=== PATIENT | male | born 2000 | race Caucasian/White ===

== ENCOUNTER 2023-02-25 15:01 | Emergency (ER) | payer OTHER, SELFPAY ==
--- NOTE | ~2023-02-25 | XR_ITS ---
EXAMINATION: XR hand RT min 3V DATE: 02/25/2023 15:21 INDICATION: Right hand pain and swelling. TECHNIQUE: 3 views of right hand were obtained. COMPARISON: None. FINDINGS: There are chip fracture fragments dorsal to fifth carpometacarpal joint. Joint spaces are n ormal. IMPRESSION: 1. Chip fracture fragments dorsal to fifth carpometacarpal joint, likely from the dorsal distal edge of hamate. Reviewed, dictated and finalized at location A. IMPRESSION: 1. Chip fracture fragments dorsal to fifth carpometacarpal joint, likely from t he dorsal distal edge of hamate.
[2023-02-25 15:05] VITALS: BP 140/88; PULSE 88; RESP 16; TEMP 36.4; O2SAT 97
[2023-02-25 15:51] VITALS: BP 139/95; PULSE 84; RESP 20; O2SAT 97
--- NOTE | 2023-02-25 16:06 | ED.UPPEXIN ---
HPI - Extremity Injury (Upper) General Chief Complaint: Extremity Injury, Upper <BENNY Saunders Last Filed: 02/25/23 17:24> Stated Complaint: I PUNCHED A WALL. <Nancy Hogan PA-C - Last Filed: 02/25/23 17:24> Time Seen by Provider: 02/25/23 15:48 <Nancy Hogan PA-C - Last Filed: 02/25/23 17:24> Source: patient <BENNY Saunders Last Filed: 02/25/23 17:24> Mode of arrival: ambulatory <BENNY Saunders Last Filed: 02/25/23 17:24> Limitations: no limitations <BENNY Saunders Last Filed: 02/25/23 17:24> History of Present Illness HPI narrative: Patient is a 22-year-old R hand dominant male who presents ED with report of right hand pain. Patient reports he punched a wall last night out of anger. He complains of pain and swelling to his right dorsal hand, worst over the third through fifth metacarpals. Denies any numbness or tingling. Denies any other injury. Patient states that his aunt gave him a hydrocodone last night for pain. <Nancy Hogan PA-C - Last Filed: 02/25/23 17:24> Related Data Allergies/Adverse Reactions: Allergies Allergy/AdvReac Type Severity Reaction Status Date / Time No Known Allergies Allergy Verified 02/25/23 15:56 <Nancy Hogan PA-C - Last Filed: 02/25/23 17:24> Review of Systems Review of Systems: CONSTITUTIONAL: Denies fever, chills, or sweats. SKIN: See HPI. MUSCULOSKELETAL: See HPI. NEUROLOGIC: Denies tingling, numbness, or weakness. <BENNY Saunders Last Filed: 02/25/23 17:24> All systems reviewed & are unremarkable except as noted in HPI and below <BENNY Saunders Last Filed: 02/25/23 17:24> Exam Narrative: GENERAL: Well appearing, obese with BMI 31.0, non-toxic, in no acute distress. HEAD: Normocephalic, atraumatic. NECK: Supple. No adenopathy, no masses. RESPIRATORY: Airway patent, respirations nonlabored. Clear to auscultation bilaterally, no rales, rhonchi, wheezing. CARDIOVASCULAR: Regular rate and rhythm without murmurs, rubs, or gallops. Radial pulses 2+ and equal bilaterally. MUSCULOSKELETAL: Limited flexion range of motion of right fingers due to pain. Swelling and ecchymosis forming over right dorsal hand, tenderness to palpation particularly over proximal fourth and fifth metacarpals. Sensation intact. Good capillary refill of fingers. SKIN: Warm, dry, normal color. No rashes. NEURO: A&O X3. Speech clear. Cranial nerves II-XII grossly intact. Steady gait. No ataxic movements. PSYCHIATRIC: Appropriate mood and affect. Normal interaction. <Nancy Hogan PA-C - Last Filed: 02/25/23 17:24> Course HAY RAKE OPERATOR/PA Physician Supervision I agree with midlevel documentation; I performed the medical decision making component of this evaluation. <Olena Alvarado MD - Last Filed: 02/25/23 17:55> Vital Signs Vital signs: Vital Signs Temperature 97.5 F L 02/25/23 15:05 Pulse Rate 88 02/25/23 15:05 Respiratory Rate 16 02/25/23 15:05 Blood Pressure 140/88 02/25/23 15:05 Pulse Oximetry 97 02/25/23 15:05 Temperature 97.5 F L 02/25/23 15:05 Pulse Rate 94 02/25/23 17:14 Respiratory Rate 19 02/25/23 17:14 Blood Pressure 135/90 02/25/23 17:14 Pulse Oximetry 98 02/25/23 17:14 <Nancy Hogan PA-C - Last Filed: 02/25/23 17:24> Vital Signs Temperature 97.5 F L 02/25/23 15:05 Pulse Rate 88 02/25/23 15:05 Respiratory Rate 16 02/25/23 15:05 Blood Pressure 140/88 02/25/23 15:05 Pulse Oximetry 97 02/25/23 15:05 Temperature 97.5 F L 02/25/23 15:05 Pulse Rate 94 02/25/23 17:14 Respiratory Rate 19 02/25/23 17:14 Blood Pressure 135/90 02/25/23 17:14 Pulse Oximetry 98 02/25/23 17:14 <Olena Alvarado MD - Last Filed: 02/25/23 17:55> MDM - Extremity Injury (Upper) MDM Narrative Medical decision making narrative: Patient presented t
[2023-02-25 17:14] VITALS: BP 135/90; PULSE 94; RESP 19; O2SAT 98
== END 2023-02-25 17:17 | disposition home or self-care (01) ==
LOC: ANHED 16:47
PROVIDERS: Emergency Provider Physician Assistant
DX: S62.144A Nondisplaced fracture of body of hamate [unciform] bone, right wrist, initial encounter for closed fracture (principal); W22.09XA Striking against other stationary object, initial encounter
CPT/HCPCS: 29125; 73130; 99284

== ENCOUNTER 2024-12-21 11:27 | Emergency (ER) | payer SELFPAY ==
[2024-12-21 11:48] VITALS: BP 137/85; PULSE 68; RESP 16; TEMP 36.6; O2SAT 96
--- OUTSIDE RECORDS SUMMARY | 2024-12-21 11:48 | XMS_ITS | Patient Health Record ---
Author Organization [facility] Address [address] [place], [place] [id number] Care Team Providers Care Montessori Program Director Name Role Phone Elio Gregg Primary Care Provider Marcell Angel Unavailable [phone] Reason For Referral No Information Problems Problem Type SNOMED Code ICD Code Onset Dates Problem Status W/U Status Risk Notes Problem Chronic tonsillitis (disorder) (27186148) Chronic tonsillitis and adenoiditis (474.02) Active confirmed Problem Hypertrophy of tonsils and adenoids (474.10) Active confirmed Plan Of Treatment No Information Insurance Providers Payer Name Payer Address Payer Phone Subscriber Number Group Number Insured Name Patient Relationship to Insured Coverage Start Date Coverage End Date [facility] [address] [address] [place] [address] [id number] 21 Ines Dennis Child - Insured has Financial Responsibility Medical (General) History Medical History History ICD Code Patient accompanied by:: mother, Is the patient over the age of 18?: No Surgical History Surgery Date(Month/Year) T & A
--- OUTSIDE RECORDS SUMMARY | 2024-12-21 11:48 | XMS_ITS | Clinical Summary ---
Author Organization [facility] Address [address] [place] [address] Care Team Providers Care Health Educator Name Role Phone Gilson Tineo MD Primary Care Provider [phone] Source Comments [facility],non-owned Affiliates and Associated Physician Practices is amultiple site organization consisting of ambulatory clinics and hospital sitesin [place], [place], [place] and [place]. This disclosure is being madepursuant to the Care Everywhere program and may not contain all information available regarding this patient. Last updated 18.[facility] Allergies No known active allergies Medications * Be aware that medications may not be up to date on this document. Alwaysverify current medications with the patient. 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 Gender Identity Not on file Sexual Orientation Not on file Last Filed Vital Signs Vital Sign Reading Time Taken Comments Blood Pressure 132/68 05/08/2013 8:07 PM CDT Pulse 76 05/08/2013 8:07 PM CDT Temperature 36.4 C (97.6 F) 05/08/2013 6:04 PM CDT Respiratory Rate 16 05/08/2013 8:07 PM CDT Oxygen Saturation 100% 05/08/2013 8:07 PM CDT Inhaled Oxygen Concentration - - Weight 72.6 kg (160 lb) 05/08/2013 6:04 PM CDT Height - - Body Mass Index - - Plan of Treatment Health Maintenance Due Date Last Done Comments HIV SCREENING 2014 HPV VACCINE (1 - Male 3-dose series) 2014 HEPATITIS C SCREENING 09/13/2017 DTAP/TDAP/TD VACCINES (1 - Tdap) 2018 HEPATITIS B VACCINE (1 of 3 - 19+ 3-dose series) 2018 COVID-19 VACCINE (1 - 2023-2 5 season) 2024 DEPRESSION SCREENING 08/11/2024 INFLUENZA VACCINE (Season Ended) 2025 ZOSTER VACCINE (1 of 2) 2049 MENINGOCOCCAL GROUPS A/C/Y/W VACCINE Completed 05/21/2018 HIB VACCINE Aged Out No longer eligi ble based on patient's age to complete this topic MENINGOCOCCAL (Group B) VACC INE SHARED DECISION-MAKING Aged Out No longer eligibl e based on patient's age to complete this topic PNEUMOCOCCAL VACCINE Aged Out No long er eligible based on patient's age to complete this topic Insurance MEDICAID - [place] Care Teams Health Educator Relationship Specialty Start Date End Date Gilson Tineo MD [address] [place] [id number] PCP - General Family Medicine 05/08/13
[2024-12-21] MEDS: TETANUS,DIPHTHERIA,AC PERTUSSIS ADULT (0.5 ML) BOOSTRIX IM (13:16)
--- NOTE | 2024-12-21 13:31 | ED_ITS ---
HPI - General Adult General Chief complaint: Wound/Laceration Stated complaint: head injury Time Seen by Provider: 12/21/24 13:04 History of Present Illness HPI narrative: Patient is a 24-year-old male who was at home working 1 hemoptysis or killer saw off of a ladder and it struck his head. No LOC. 3 cm laceration. Bleeding controlled. Unknown last tetanus shot. No other concerns. Related Data Allergies Allergy/AdvReac Type Severity Reaction Status Date / Time No Known Allergies Allergy Verified 12/21/24 11:51 Review of Systems Constitutional: Constitutional: Reports no additional constitutional complaints Integumentary/Breasts: Skin/Breast: Reports system reviewed and no additional complaints, except as docu Neurologic: Reports system reviewed and no additional complaints, except as documented PMFSH Past Medical History Medical History (Updated 12/21/24 @ 13:34 by Ayan Joaquin MD) Healthy adult male Exam Narrative: GENERAL: Well-appearing, well-nourished, and in no acute distress. HEAD: Normocephalic, 3 cm midline vertical laceration to the anterior scalp above the forehead. ENT: Mucous membranes moist. EXTREMITIES: Normal range of motion. No edema. SKIN: Warm, dry, no rash. NEURO: Alert and oriented x3. PSYCH: Normal mood and affect. Course Course Emergency Course: Wound irrigated and cleaned. No foreign body. Tolerated repair. Discussed return precautions. Tetanus updated. Vital Signs Vital signs: Vital Signs Temperature 97.8 F 12/21/24 11:48 Pulse Rate 68 12/21/24 11:48 Respiratory Rate 16 12/21/24 11:48 Blood Pressure 137/85 12/21/24 11:48 Pulse Oximetry 96 12/21/24 11:48 Oxygen Delivery Room Air 12/21/24 11:48 Temperature 97.8 F 12/21/24 11:48 Pulse Rate 68 12/21/24 11:48 Respiratory Rate 16 12/21/24 11:48 Blood Pressure 137/85 12/21/24 11:48 Pulse Oximetry 96 12/21/24 11:48 Oxygen Delivery Room Air 12/21/24 11:48 Procedures Laceration Laceration 1: Date: 12/21/24 Time: 13:30 Site: scalp Size (cm): 3 Description: linear and clean Depth: simple, single layer ====== Skin Level ====== Skin layer closed with: derek Number of sutures: 3 ====== Subcutaneous Layer ====== ====== Muscle Layer ====== ====== Tendon Layer ====== Medical Decision Making Vital Signs Vital Signs: Vital Signs Temperature 97.8 F 12/21/24 11:48 Pulse Rate 68 12/21/24 11:48 Respiratory Rate 16 12/21/24 11:48 Blood Pressure 137/85 12/21/24 11:48 Pulse Oximetry 96 12/21/24 11:48 Oxygen Delivery Room Air 12/21/24 11:48 Temperature 97.8 F 12/21/24 11:48 Pulse Rate 68 12/21/24 11:48 Respiratory Rate 16 12/21/24 11:48 Blood Pressure 137/85 12/21/24 11:48 Pulse Oximetry 96 12/21/24 11:48 Oxygen Delivery Room Air 12/21/24 11:48 Discharge Plan Discharge Clinical Impression: Laceration of scalp Patient Disposition: Home Condition: Stable Instructions: Laceration (ED), Staple Care (ED) Additional Instructions: Remove your derek in 7 days. Return the ER if the wound is draining pus coming you have fever over 100.4? F, you have additional concerns. Patient Language: Afghan Prescriptions: No Action hydrocodone-acetaminophen 5-325 mg tablet 1 tablet PO Q6H PRN (Reason: pain) Qty: 9 0RF Follow-up/Referrals: PHYSICIAN,WATER PURIFICATION CHEMIST [Primary Care Provider] - José Miguel Merrill MD [Physician] - 1 Week
--- OUTSIDE RECORDS SUMMARY | 2024-12-21 13:55 | XMS_ITS | Clinical Summary ---
Author Organization [facility] Address [address] [place] [address] Care Team Providers Care Tie Sawyer Name Role Phone Gilson Tineo MD Primary Care Provider [phone] Source Comments [facility],non-owned Affiliates and Associated Physician Practices is amultiple site organization consisting of ambulatory clinics and hospital sitesin [place], [place], [place] and [place]. This disclosure is being madepursuant to the Care Everywhere program and may not contain all information available regarding this patient. 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
== END 2024-12-21 13:46 | disposition home or self-care (01) ==
PROVIDERS: Emergency Provider Emergency Medicine
DX: S01.01XA Laceration without foreign body of scalp, initial encounter (principal); W20.8XXA Other cause of strike by thrown, projected or falling object, initial encounter; Z23 Encounter for immunization
CPT/HCPCS: 12002; 90471; 90715; 99282

== ENCOUNTER 2025-03-05 20:07 | Emergency (ER) | payer SELFPAY ==
--- OUTSIDE RECORDS SUMMARY | 2025-03-05 20:09 | XMS_ITS | Patient Health Record ---
Author Organization [facility] Address [address] [place], [place] [id number] Care Team Providers Care Die Cutting Machine Operator Name Role Phone Elio Gregg Primary Care Provider Marcell Angel Unavailable [phone] Reason For Referral No Information Problems Problem Type SNOMED Code ICD Code Onset Dates Problem Status W/U Status Risk Notes Problem Chronic tonsillitis (disorder) (39273890) Chronic tonsillitis and adenoiditis (474.02) Active confirmed Problem Hypertrophy of tonsils and adenoids (474.10) Active confirmed Plan Of Treatment No Information Insurance Providers Payer Name Payer Address Payer Phone Subscriber Number Group Number Insured Name Patient Relationship to Insured Coverage Start Date Coverage End Date [facility] [address] [address] [place] [address] [phone] [id number] 21 Ines Dennis Child - Insured has Financial Responsibility Medical (General) History Medical History History ICD Code Patient accompanied by:: mother, Is the patient over the age of 18?: No Surgical History Surgery Date(Month/Year) T & A
--- OUTSIDE RECORDS SUMMARY | 2025-03-05 20:09 | XMS_ITS | Clinical Summary ---
Author Organization [facility] Address [address] [address] Care Team Providers Care General Car Yard Supervisor Name Role Phone Gilson Tineo MD Primary Care Provider [phone] Source Comments [facility],non-owned Affiliates and Associated Physician Practices is amultiple site organization consisting of ambulatory clinics and hospital sitesin [place], [place], [place] and [place]. This disclosure is being madepursuant to the Care Everywhere program and may not contain all information available regarding this patient. 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
[2025-03-05 20:17] VITALS: BP 171/87; PULSE 91; RESP 20; TEMP 36.6; O2SAT 96
--- OUTSIDE RECORDS SUMMARY | 2025-03-05 22:21 | XMS_ITS | Clinical Summary ---
Author Organization [facility] Address [address] [facility] [address] [place] [address] Care Team Providers Care Hot Bread Baker Name Role Phone Gislon Tineo MD Primary Care Provider [phone] Source Comments [facility] [employer],non-owned Affiliates and Associated Physician Practices is amultiple site organization consisting of ambulatory clinics and hospital sitesin [place], [place], [place] and [place]. This disclosure is being madepursuant to the Care Everywhere program and may not contain all information available regarding this patient. 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
--- NOTE | 2025-03-05 22:30 | ED.SKABFB ---
HPI - Skin/Abscess/Foreign Bdy General Chief complaint: Skin/Abscess/Foreign Body Stated complaint: something crawling in legs Time Seen by Provider: 03/05/25 22:09 Source: patient and RN notes reviewed Mode of arrival: ambulatory Limitations: no limitations History of Present Illness HPI narrative: 24 y/o WM in the ED for insect bites to BLE since going on a camping trip in [place]. Pt states that worms are crawling out of his wounds. Pt endorses marijuana and cocaine usage today, as well as ETOH usage all weekend. Pt states bites don't itch. Denies wearing long pants or bug spray. Pt denies any ticks or chiggers found on the body. Pt denies any fevers, chills, CP, SOB, abd pain. Related Data Allergies Allergy/AdvReac Type Severity Reaction Status Date / Time No Known Allergies Allergy Verified 03/05/25 20:27 Review of Systems Review of Systems: CONSTITUTIONAL: Denies fever, chills, or sweats. EYES: Denies visual changes, redness, or discharge. ENT: Denies rhinorrhea, congestion, sore throat, or otalgia. CARDIOVASCULAR: Denies chest pain, palpitations, or edema. RESPIRATORY: Denies cough or dyspnea. GASTROINTESTINAL: Denies abdominal pain, nausea, vomiting, or diarrhea. GENITOURINARY: Denies dysuria or hematuria. SKIN: Endorses numerous insect bites to legs with worms crawling out of them. Denies itching. MUSCULOSKELETAL: Denies back pain, joint pain, or myalgia. NEUROLOGIC: Denies headache, numbness, or weakness. PSYCHIATRIC: Denies anxiety or depression. [facility] Past Medical History Medical History (Updated 03/05/25 @ 22:56 by Giuseppe Harris, CHANELL) Healthy adult male Exam Narrative: GENERAL: Well-appearing, well-nourished, and in no acute distress. HEAD: Normocephalic, atraumatic. EYES: PERRLA and EOMI. ENT: Nares clear, no rhinorrhea or epistaxis. Mucous membranes moist. NECK: Supple. CHEST: Clear to auscultation. No respiratory distress. HEART: Regular rate and rhythm. No murmur heard. Normal peripheral pulses. ABDOMEN: Soft, nontender, nondistended, normal active bowel sounds. EXTREMITIES: Normal range of motion. No edema. SKIN: Warm, dry. Pt has numerous papules and pustules to BLE from the thigh to the ankle, w/ some scabbed over area. NEURO: No focal deficits. Alert and oriented x3. PSYCH: Normal mood and affect. Course Vital Signs Vital signs: Vital Signs Temperature 36.6 C 03/05/25 20:17 Pulse Rate 91 03/05/25 20:17 Respiratory Rate 20 03/05/25 20:17 Blood Pressure 171/87 H 03/05/25 20:17 Pulse Oximetry 96 03/05/25 20:17 Oxygen Delivery Room Air 03/05/25 20:17 Temperature 36.6 C 03/05/25 20:17 Pulse Rate 91 03/05/25 20:17 Respiratory Rate 20 03/05/25 20:17 Blood Pressure 171/87 H 03/05/25 20:17 Pulse Oximetry 96 03/05/25 20:17 Oxygen Delivery Room Air 03/05/25 20:17 MDM - Skin/Abscess/Foreign Bdy MDM Narrative Medical decision making narrative: HPI: 24 y/o WM in the ED for insect bites to BLE since going on a camping trip in [place]. Pt states that worms are crawling out of his wounds. Pt endorses marijuana and cocaine usage today, as well as ETOH usage all weekend. Pt states bites don't itch. Denies wearing long pants or bug spray. Pt denies any ticks or chiggers found on the body. Pt denies any fevers, chills, CP, SOB, abd pain. My Plan Labs Ordered: None Imaging Ordered: None Medications Ordered: None Results: Diagnosis: Rash d/t insect bites Risks: HEART score, PECARN score, CURB-65 score Consults: Differential Diagnosis Differential diagnosis: Likely abscess of skin or subcutaneous tissue, urticaria, allergic reaction to drug and insect bites Discharge Plan Discharge Clinical Impression: Insect bites, Rash Patient Disposition: Home Condition: Stable Instructions: Antibiotic Form, Insect Bite or Sting (ED) Additional Instructions: Please return to the ER with any worsening symptoms. ?Follow-up with primary care provider as soon as possible. ?Take all medications as prescribed, including regularly scheduled medications. May use [id number] 1% hydrocortisone to help her with her rash and bites. Patient Language: Occitan Prescriptions: No Action hydrocodone-acetaminophen 5-325 mg tablet 1 tablet PO Q6H PRN (Reason: pain) Qty: 9 0RF Follow-up/Referrals: UNKNOWN,DOCTOR [Primary Care Provider] -
== END 2025-03-05 23:10 | disposition home or self-care (01) ==
PROVIDERS: Emergency Provider Registered Nurse Emergency
DX: S80.862A Insect bite (nonvenomous), left lower leg, initial encounter (principal); S80.861A Insect bite (nonvenomous), right lower leg, initial encounter; R21 Rash and other nonspecific skin eruption; W57.XXXA Bitten or stung by nonvenomous insect and other nonvenomous arthropods, initial encounter; F12.90 Cannabis use, unspecified, uncomplicated; F14.90 Cocaine use, unspecified, uncomplicated
CPT/HCPCS: 99281

== ENCOUNTER 2025-05-16 17:31 | Emergency (ER) | payer SELFPAY ==
--- NOTE | ~2025-05-16 | XR_ITS ---
EXAMINATION: XR wrist LT min 3V, 05/16/2025 18:05 CDT HISTORY: injury, fell on Friday COMPARISON: No comparisons available. Findings: No acute fracture or malalignment. No significant degenerative changes. Soft tissues unremarkable. Impression: No acute fracture or malalignment. Reviewed, dictated and finalized at location P. Impression: No acute fracture or malalignment.
[2025-05-16 18:18] VITALS: BP 155/80; PULSE 73; RESP 18; TEMP 36.4; O2SAT 100
--- NOTE | 2025-05-16 18:18 | ED_ITS ---
HPI - Extremity Injury (Upper) General Chief Complaint: Extremity Injury, Upper <Musa Devries APRN - Last Filed: 05/16/25 18:20> Stated Complaint: I think I broke my left wrist <Musa Devries APRN - Last Filed: 05/16/25 18:20> Time Seen by Provider: 05/16/25 22:51 <Musa Devries APRN - Last Filed: 05/16/25 18:20> Focused HPI: 24-year-old male presents ER complaining of left wrist pain. Patient states 3 days ago he was intoxicated, fell on an outstretched arm. Pain complaining of pain since the injury. Pain is worse with movement. No other injuries. GENERAL: Well-appearing, well-nourished, and in no acute distress. HEAD: Normocephalic, atraumatic. CHEST: Clear to auscultation. No respiratory distress. HEART: Regular rate and rhythm. NEURO: Alert and oriented x3. Patient screened in triage and initial orders placed. Additional care and disposition to be based upon diagnostic testing and treatment. <Musa Devries APRN - Last Filed: 05/16/25 18:20> Related Data Allergies/Adverse Reactions: Allergies Allergy/AdvReac Type Severity Reaction Status Date / Time No Known Allergies Allergy Verified 05/16/25 21:50 <Musa Devries APRN - Last Filed: 05/16/25 18:20> Review of Systems Review of Systems: All systems reviewed & are unremarkable except as noted in HPI and below <Ewa Weaver PA-C - Last Filed: 05/16/25 23:56> PMFSH Past Medical History Medical History: Medical History (Updated 05/16/25 @ 23:54 by Ewa Weaver PA-C) Healthy adult male <Musa Devries APRN - Last Filed: 05/16/25 18:20> Exam Narrative: GENERAL: Well-appearing, well-nourished, and in no acute distress. HEAD: Normocephalic, atraumatic. EYES: EOMI. EXTREMITIES: Normal range of motion. No obvious deformity. Normal radial pulse. Normal sensation SKIN: Warm, dry, no rash. NEURO: No focal deficits. Alert and oriented x3. PSYCH: Normal mood and affect <Ewa Weaver PA-C - Last Filed: 05/16/25 23:56> Course Vital Signs Vital signs: Vital Signs Temperature 97.5 F L 05/16/25 18:18 Pulse Rate 73 05/16/25 18:18 Respiratory Rate 18 05/16/25 18:18 Blood Pressure 155/80 H 05/16/25 18:18 Pulse Oximetry 100 05/16/25 18:18 Temperature 97.7 F 05/16/25 21:49 Pulse Rate 71 05/16/25 21:49 Respiratory Rate 20 05/16/25 21:49 Blood Pressure 148/82 H 05/16/25 21:49 Pulse Oximetry 100 05/16/25 21:49 Oxygen Delivery Room Air 05/16/25 21:47 <Musa Devries COMBAT SYSTEMS ENGINEER - Last Filed: 05/16/25 18:20> Vital Signs Temperature 97.5 F L 05/16/25 18:18 Pulse Rate 73 05/16/25 18:18 Respiratory Rate 18 05/16/25 18:18 Blood Pressure 155/80 H 05/16/25 18:18 Pulse Oximetry 100 05/16/25 18:18 Temperature 97.7 F 05/16/25 21:49 Pulse Rate 71 05/16/25 21:49 Respiratory Rate 20 05/16/25 21:49 Blood Pressure 148/82 H 05/16/25 21:49 Pulse Oximetry 100 05/16/25 21:49 Oxygen Delivery Room Air 05/16/25 21:47 <BENNY Rivero Last Filed: 05/16/25 23:56> MDM - Extremity Injury (Upper) MDM Narrative Medical decision making narrative: Patient presents to the emergency department after a fall 2 days ago with left wrist pain. He is neurovascularly intact. Left wrist x-ray without acute osseous abnormalities. Patient placed in Brandon wrap. Instructed to rest, ice and take [id number] pain medication as needed. He was given warnings to return to the ER <BENNY Rivero Last Filed: 05/16/25 23:56> Differential Diagnosis Differential diagnosis: Likely sprain and strain of wrist and fracture of wrist <BENNY Rivero Last Filed: 05/16/25 23:56> Imaging Data Radiologist's impression: ITS Impressions Wrist X-Ray 05/16/25 18:17 Impression: No acute fracture or malalignment. <Ewa Weaver PA-C - Last Filed: 05/16/25 23:56> Critical Care Time Critical Care Time Critical Care Time: No <Ewa Weaver PA-C - Last Filed: 05/16/25 23:56> Discharge Plan Discharge Clinical Impression: Contusion of left wrist Qualifiers: Encounter type: initial encounter Qualified Code(s): S60.212A - Contusion of left wrist, initial encounter <Musa Devries APRN - Last Filed: 05/16/25 18:20> Patient Disposition: Home <Musa Devries APRN - Last Filed: 05/16/25 18:20> Condition: Stable <Musa Devries APRN - Last Filed: 05/16/25 18:20> Instructions: Contusion in Adults (ED) <Musa Devries APRN - Last Filed: 05/16/25 18:20> Additional Instructions: Return to the ER if you experience fever, redness and swelling of your extremity, numbness or any other symptoms that are concerning to you Wear BRANDON wrap. No weight on the affected extremity. Ice and elevate extremity. Pain medication as needed and directed. Follow up with orthopedics for further care. <Musa Devries APRN - Last Filed: 05/16/25 18:20> Patient Language: Azerbaijani <Msua Devries APRN - Last Filed: 05/16/25 18:20> Prescriptions: No Action hydrocodone-acetaminophen 5-325 mg tablet 1 tablet PO Q6H PRN (Reason: pain) Qty: 9 0RF <CHANELL Pinon Last Filed: 05/16/25 18:20> Follow-up/Referrals: Marco Dickens MD [Physician, Orthopedics] UNKNOWN,DOCTOR [Non-Staff] <CHANELL Pinon Last Filed: 05/16/25 18:20>
[2025-05-16 21:47] VITALS: BP 148/82; PULSE 67; RESP 14; TEMP 36.5; O2SAT 100
[2025-05-16 21:49] VITALS: BP 148/82; PULSE 71; RESP 20; TEMP 36.5; O2SAT 100
--- OUTSIDE RECORDS SUMMARY | 2025-05-16 23:05 | XMS_ITS | Clinical Summary ---
Author Organization [facility] Address [address] [place] [address] Care Team Providers Care Carbon Brush Maker Name Role Phone Gilson Tineo MD Primary Care Provider [phone] Source Comments [facility],non-owned Affiliates and Associated Physician Practices is amultiple site organization consisting of ambulatory clinics and hospital sitesin [place], [place], [place] and [place]. This disclosure is being madepursuant to the Care Everywhere program and may not contain all information available regarding this patient. 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
--- NOTE | 2025-05-17 00:03 | PC.NURSE ---
pt refuses his ibu and makenna wrap.
== END 2025-05-17 00:05 | disposition home or self-care (01) ==
PROVIDERS: Emergency Provider Physician Assistant
DX: S60.212A Contusion of left wrist, initial encounter (principal); W19.XXXA Unspecified fall, initial encounter
CPT/HCPCS: 73110; 99283

== ENCOUNTER 2025-06-22 10:46 | Emergency (ER) | payer SELFPAY ==
--- NOTE | ~2025-06-22 | XR_ITS ---
PROCEDURE(S): X-ray right foot, minimum 3 views INDICATION(S): Injury COMPARISON(S): None. TECHNIQUE: 4 radiographic images were submitted for interpretation. FINDINGS: Bones: There is a fracture line seen medially through the navicular. This appears to possibly be corticated. There are no destructive lesions or other lesions identified. Joints: There are no dislocations identified. There is no evidence of erosive arthropathy. IMPRESSION: There is a fracture line through the navicular. It is uncertain if this represents an old fracture that is ununited. Correlate with point tenderness. Reviewed, dictated and finalized at location A. GER RFID IMPRESSION: There is a fracture line through the navicular. It is uncertain if this represents an old fracture that is ununited. Correlate with point tenderne ss.
--- NOTE | ~2025-06-22 | XR_ITS ---
EXAMINATION: XR ankle RT min 3V, 06/22/2025 12:25 INSPECTOR BALL POINTS HISTORY: right ankle pain, injury COMPARISON: No comparisons available. Findings: No acute fracture or malalignment. No significant degenerative changes. Soft tissues unremarkable. Impression: No acute fracture or malalignment. Reviewed, dictated and finalized at location P. ECTOR BALL POINTS Impression: No acute fracture or malalignment.
--- OUTSIDE RECORDS SUMMARY | 2025-06-22 12:11 | XMS_ITS | Clinical Summary ---
Author Organization [facility] Address [address] [place] [address] Care Team Providers Care Concrete Batch Plant Operator Name Role Phone Gilson Tineo MD Primary Care Provider [phone] Source Comments [facility],non-owned Affiliates and Associated Physician Practices is amultiple site organization consisting of ambulatory clinics and hospital sitesin [place], [place], [place] and [place]. This disclosure is being madepursuant to the Care Everywhere program and may not contain all information available regarding this patient. 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
--- OUTSIDE RECORDS SUMMARY | 2025-06-22 12:11 | XMS_ITS | Patient Health Record ---
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.02) Active confirmed Problem Hypertrophy of tonsils AND adenoids (55021623) Hypertrophy of tonsils and adenoids (474.10) Active confirmed Plan Of Treatment No Information Insurance Providers Payer Name Payer Address Payer Phone Subscriber Number Group Number Insured Name Patient Relationship to Insured Coverage Start Date Coverage End Date [facility] [address] [address] [place] [address] [id number] In[address] Dennis Child - Insured has Financial Responsibility Medical (General) History Medical History History ICD Code Patient accompanied by:: mother, Is the patient over the age of 18?: No Surgical History Surgery Date(Month/Year) T & A
--- NOTE | 2025-06-22 12:57 | ED_ITS ---
HPI - General Adult General Chief complaint: Extremity Injury, Lower Stated complaint: R ankle injury Time Seen by Provider: 06/22/25 11:59 History of Present Illness HPI narrative: 24-year-old male presenting to the emergency department for evaluation for a right foot right ankle injury. Patient states there was a cart of concrete behind him and it caught his ankle and compressed his right foot. Patient denies any other pain or injuries. Patient does have ecchymosis of the right eye from her previous injury but declined workup for that. Related Data Allergies Allergy/AdvReac Type Severity Reaction Status Date / Time No Known Allergies Allergy Verified 05/16/25 21:50 Review of Systems Review of Systems: All systems reviewed & are unremarkable except as noted in HPI and below PMFSH Past Medical History Medical History (Updated 06/22/25 @ 13:29 by Giovani Ho MD) Healthy adult male Exam Narrative: APPEARANCE: Well appearing, no pain, no distress, well-nourished. HEAD: normocephalic, atraumatic. EYES: Old ecchymosis of right eye NOSE: Normal no drainage EARS:TMS clear with good light reflex. THROAT: Pharynx clear, no exudate. NECK: Supple. No adenopathy, no masses. RESPIRATORY: Airway patent, respirations nonlabored. Clear to auscultation bilaterally, no rales, rhonchi, wheezing. CARDIOVASCULAR: Regular rate and rhythm without murmurs rubs or gallops. ABDOMINAL: Soft, nontender, nondistended, normal bowel sounds MUSCULOSKELETAL: Lateral right ankle tenderness and right lateral foot tenderness NEURO: Alert. Cranial nerves II through XII intact. Good gait. Good coordination SKIN: Warm, dry. Normal Color Medical Decision Making [facility] Narrative Medical decision making narrative: 24-year-old male present to the emergency department for evaluation for right foot pain. X-ray was negative for fracture dislocation. Foot x-ray does show a navicular fracture. Patient was placed in a splint and provided crutches for nonweightbearing. Patient was encouraged of close follow-up with Orthopedics. All questions concerns were addressed. Differential Diagnosis Differential Diagnosis: Foot fracture, foot contusion, ankle fracture, ankle sprain Imaging Data Radiologist's impression: Impressions Ankle X-Ray 06/22/25 12:35 Impression: No acute fracture or malalignment. Foot X-Ray 06/22/25 13:18 IMPRESSION: There is a fracture line through the navicular. It is uncertain if this represents an old fracture that is ununited. Correlate with point tenderness. Discharge Plan Discharge Clinical Impression: Closed navicular fracture of right foot Patient Disposition: Home Condition: Stable Instructions: Antibiotic Form, Crutch Instructions (ED), Splint Care (ED) Additional Instructions: Splint care as directed. Crutches for nonweightbearing. Have close follow-up with Orthopedics. If you have any worsening symptoms then please call or return to the emergency department Patient Language: Zimbabwean Prescriptions: No Action hydrocodone-acetaminophen 5-325 mg tablet 1 tablet PO Q6H PRN (Reason: pain) Qty: 9 0RF Follow-up/Referrals: PHYSICIAN,SHIPPING AND RECEIVING COORDINATOR [Primary Care Provider, Internal Medicine] Marco Dickens MD [Physician, Orthopedics] Stand Alone Forms: Work/School Release IP
--- NOTE | 2025-06-22 13:05 | PC.NURSE ---
patient to xray at this time
--- OUTSIDE RECORDS SUMMARY | 2025-06-22 13:42 | XMS_ITS | Clinical Summary ---
Author Organization [facility] Address [address] [place] [address] Care Team Providers Care Accredited Pharmacy Technician Name Role Phone Gilson Tineo MD Primary Care Provider Source Comments [facility],non-owned Affiliates and Associated Physician Practices is amultiple site organization consisting of ambulatory clinics and hospital sitesin [place], [place], [place] and [place]. This disclosure is being madepursuant to the Care Everywhere program and may not contain all information available regarding this patient. 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
--- NOTE | 2025-06-22 13:45 | PC.NURSE ---
radiology contacted for image disc at this time
== END 2025-06-22 13:54 | disposition home or self-care (01) ==
PROVIDERS: Emergency Provider Emergency Medicine
DX: S92.251A Displaced fracture of navicular [scaphoid] of right foot, initial encounter for closed fracture (principal); W22.8XXA Striking against or struck by other objects, initial encounter
CPT/HCPCS: 29515; 73610; 73630; 99284